=== PATIENT | female | born 1935 | race Caucasian/White ===

== ENCOUNTER 2021-03-24 09:56 | Observation (INO) ==
[2021-03-24] MEDS ORDERED: Melatonin 3 MG TABLET PO PRN (16:48)
[2021-03-24] MEDS ORDERED: Ondansetron ODT 4 MG TAB.RAPDIS SL PRN (16:48)
[2021-03-24] MEDS ORDERED: Mag Hydrox/Al Hydrox/Simeth 30 ML UDC PO PRN (16:48)
[2021-03-24] MEDS ORDERED: MOM Conc 10 ML UD.LIQ PO PRN (16:48)
[2021-03-24] MEDS ORDERED: Naloxone 0.4 MG/ML INJ IVP PRN (16:48)
[2021-03-24] MEDS ORDERED: Perflutren Lipid Microsphere 1.3 ML in 0.9 % Sodium Chloride 8.7 ML IVP PRN (16:57)
[2021-03-24] MEDS ORDERED: GADOBUTROL 30 MMOL/30 ML VIAL IVP ONE (18:17)
[2021-03-25 00:36] LABS: Hematocrit 37.9 % (35.3-44.9); Hemoglobin 11.9 g/dL (11.5-15.4); Mean Corpuscular HGB Conc 31.4 g/dL (31.6-35.5); Mean Corpuscular Hemoglobin 29.4 pg (28.0-33.3); Mean Corpuscular Volume 93.6 fL (83.0-100.0); Platelet Count 223 K/mcL (140-400); Red Blood Count 4.05 M/mcL (3.82-4.97); Red Cell Distribution Width 13.5 % (11.5-14.5); White Blood Count 9.2 K/mcL (4.3-11.1)
[2021-03-25 00:43] LABS: INR 1.1
[2021-03-25 00:52] LABS: Alanine Aminotransferase 29 Units/L (7-52); Albumin 3.5 g/dL (3.5-5.7); Albumin/Globulin Ratio 1.5 (1.1-2.2); Alkaline Phosphatase 57 Units/L (34-104); Aspartate Amino Transferase 24 Units/L (13-39); BUN/Creatinine Ratio 21 (6-26); Bilirubin,Total 0.5 mg/dL (0.3-1.0); Blood Urea Nitrogen 16 mg/dL (8-23); Calcium 8.5 mg/dL (8.6-10.3); Carbon Dioxide 24 mEq/L (23-29); Chloride 112 mEq/L (98-107); Chol/HDL Ratio 3.1 (0-4.9); Cholesterol 140 mg/dL (< 200); Globulin 2.3 g/dL (2.4-3.5); Glucose 95 mg/dL (70-105); HDL Cholesterol 45 mg/dL (40-59); LDL Cholesterol,Calculated 76 mg/dL (< 100); Osmolality,Calculated 297 (280-300); Potassium 3.4 mEq/L (3.5-5.1); Sodium 143 mEq/L (136-145); Total Protein 5.8 g/dL (6.4-8.9); Triglycerides 94 mg/dL (< 150); eGFR For African Americans > 60 (> 60); eGFR For Non-African Americans > 60 (> 60)
[2021-03-25 01:24] LABS: Estimated Average Glucose 137 mg/dl; Hemoglobin A1C 6.4 %
[2021-03-25] MEDS ORDERED: *HR* Enoxaparin 40 MG/0.4 ML SYRINGE SQ SCH (06:00)
[2021-03-25] MEDS ORDERED: Aspirin Enteric Coated 81 MG Tablet PO SCH (09:00)
[2021-03-25 16:27] VITALS: BP 176/91; PULSE 78; TEMP 98.4; O2SAT 92
== END 2021-03-25 17:37 | disposition home or self-care (01) ==
LOC: 3BNU → SUATTDRO 15:52
PROVIDERS: ADMIT Internal Medicine; ATTEND Registered Nurse